=== PATIENT | female | born 1985 | race Asian ===

== ENCOUNTER → 2016-06-18 | Outpatient (CLI) | payer OTHER ==
[~2016-06-18] MED LIST: MTR600X PO; OXYC-57 PO; PRENTAB26 PO
[2016-06-18 11:19] LABS: GTGD 50 Grams
[2016-06-18 12:24] LABS: URINE APPEARANCE CLEAR (CLEAR); URINE BILIRUBIN NEG (NEG); URINE COLOR YELLOW; URINE NITRITE NEG (NEG); URINE PH 7.5 (4.5-7.5); URINE SPECIFIC GRAVITY 1.007 (1.000-1.030); UROBILINOGEN NEG (NEG)
[2016-06-18 12:26] LABS: MANUAL MICROSCOPIC REQUIRED? NO; REVIEW REQ? NO
== END | disposition home or self-care (01) ==
LOC: C.LAB1850 09:50
PROVIDERS: ATTEND Obstetrics & Gynecology
DX: Z34.83 Encounter for supervision of other normal pregnancy, third trimester (principal)

== ENCOUNTER → 2016-08-19 | Outpatient (CLI) | payer OTHER | END | disposition home or self-care (01) | LOC: C.LABSPEC 17:51 | PROVIDERS: ATTEND Obstetrics & Gynecology | DX: Z34.83 Encounter for supervision of other normal pregnancy, third trimester (principal) ==

== ENCOUNTER 2016-09-09 05:30 | Inpatient (IN) | payer OTHER ==
[2016-09-08 14:54] VITALS: BMI 28.0
--- NOTE | 2016-09-08 15:19 | PAT Medication Instructions ---
Service Date Sep 08, 2016. Current Home Medication List Multivit/Min/Iron/Fol Ac/Pren ( Vitamin), 1 TAB PO HS Medication Instructions For Your Scheduled Surgery - Take the following medications as scheduled the night before surgery: Multivit/Min/Iron/Fol Ac/Pren ( Vitamin), 1 TAB PO HS If you have any questions please call us at [phone] (Nory Simpson PA-C) or [phone] or [phone]
[2016-09-08 16:35] LABS: BASO % 0.1 %; BASO ABS # 0.01 K/uL (0-0.2); COMPLETE YES; EOS % 1.6 %; HEMATOCRIT 38.1 % (37-47); LYMPH % 16.8 %; LYMPH ABS # 1.63 K/uL (1.2-3.4); MEAN CELL VOLUME 94.5 fL (80-100); MEAN CORPUSCULAR HGB CONC 33.9 g/dl (32-36); MEAN PLATELET VOLUME 10.2 fL (7.4-10.4); MONO % 8.2 %; NEUT % 72.3 %; PLATELET COUNT 228 K/uL (130-400); RED BLOOD COUNT 4.03 M/uL (4.2-5.4)
--- NOTE | 2016-09-08 21:05 | HISTORY & PHYSICAL EXAMINATION ---
DATE OF ADMISSION: 09/09/2016 PREOPERATIVE DIAGNOSES: 1. Intrauterine at 39 and 5/7 weeks. 2. History of previous section. HISTORY OF PRESENT ILLNESS: Lubna who goes by Fior is a 31-year-old female, 2, para 1-0-0-1 with an intrauterine at 39 and 5/7 weeks dated by last menstrual period consistent with a first trimester ultrasound, who presents to labor and delivery for repeat section. Her first delivery was a delivery via [facility] for an 8-pound 8-ounce male at 40 and 2/7 weeks. She had a primary low transverse section after progressing to complete-complete and 0 to +1 station. The baby became tachycardic. She developed chorioamnionitis and thick meconium and had failure to descend. This has been uncomplicated for the patient. She notes positive movement. She had a nonstress test yesterday which was reactive. No significant contractions, leaking or bleeding. PAST OBSTETRIC AND GYNECOLOGIC HISTORY: As noted above. She notes no abnormal Pap smears or sexually transmitted disease. ALLERGIES: None. MEDICATIONS: vitamin. PAST MEDICAL HISTORY: The patient is healthy. Denies thyroid disease, asthma, heart disease, heart murmur, diabetes, kidney or liver problems. PAST SURGICAL HISTORY: Includes the removal of an endometrial polyp with D\T\C in 2013, , and wisdom teeth removal. SOCIAL HISTORY: The patient denies tobacco, alcohol or drug use. She lives with her child and . FAMILY HISTORY: There is no significant family history. PHYSICAL EXAMINATION: GENERAL: This is a well-developed, well-nourished female in no acute distress. VITAL SIGNS: Blood pressure 102/64, weight 188.4 pounds. NECK: Supple without thyromegaly or lymphadenopathy. CHEST: Clear to auscultation bilaterally. CARDIOVASCULAR: Regular rate and rhythm without murmurs, gallops or rubs. ABDOMEN: Soft, gravid and nontender. EXTREMITIES: Show trace edema but are otherwise negative. PELVIC: Deferred. LABORATORY DATA: Blood type A positive, antibody negative, Pap normal, rubella immune, RPR nonreactive, HIV negative, hepatitis B negative, chlamydia and gonorrhea cultures negative, GTT x2 negative, quad screen negative, normal anatomy ultrasound, GBS negative. ASSESSMENT: Fior is a 31-year-old 2, para 1 at 39 and 4/7 weeks who presents for repeat section. The risks of the procedure were discussed with the patient including the risks of anesthesia, bleeding requiring transfusion, infection, poor wound healing, damage to surrounding structures including bowel, bladder, vessels, nerves and ureters with need for further surgery, hospitalization or intervention. We discussed the alternative of trial of labor. We discussed the risks of any surgery including heart attack, blood clot, stroke or . The patient consents to the procedure and it is planned for 09/09.
[~2016-09-09] VITALS: Ht 172.7 cm; Wt 82.0 kg
[2016-09-09] VITALS (14 sets, daily range): BP systolic 95–105; BP diastolic 56–64; PULSE 69–83; TEMP 36.5–36.8; O2SAT 96–98; Ht 172.7 cm; Wt 82.0 kg
[~2016-09-09 05:30] MED LIST changes: -MTR600X PO; -OXYC-57 PO
[2016-09-09] MEDS ORDERED: CITRIC ACID/SODIUM CITRATE 15 ML UDC ONE (06:06)
[2016-09-09] MEDS ORDERED: CEFAZOLIN IV 2,000 MG in DEXTROSE 5% 50ML IV STA (06:13)
[2016-09-09] MEDS ORDERED: LACTATED RINGER'S 1000ML 1,000 ML IV ONE (06:30)
[2016-09-09 06:43] LABS: MEAN CELL VOLUME 94.1 fL (80-100); MEAN CORPUSCULAR HEMOGLOBIN 31.8 pg (25-34); MEAN PLATELET VOLUME 9.8 fL (7.4-10.4); PLATELET COUNT 202 K/uL (130-400); RED BLOOD COUNT 3.93 M/uL (4.2-5.4)
[2016-09-09 06:45] LABS: MEAN CORPUSCULAR HGB CONC 33.8 g/dl (32-36)
[2016-09-09] MEDS ORDERED: PHENYLEPHRINE HCL INJ 10 MG/ML VIAL ONE (06:51)
[2016-09-09] MEDS ORDERED: OXYTOCIN INJ 10 UNITS/ML VIAL ONE (06:51)
[2016-09-09] MEDS ORDERED: MoRPHine SULFATE PF 1 MG/ML 10 ML AMP/VIAL ONE (06:53)
--- NOTE | 2016-09-09 07:09 | History & Physical Bridge Note ---
H&P Re-Evaluation Bridge Note: I have examined the patient, reviewed the History & Physical and in the interval since the performance of the History & Physical I have noted the following changes of clinical significance: No changes noted
[2016-09-09] MEDS ORDERED: ONDANSETRON INJ 2 MG/ML 2 ML VIAL ONE (07:51)
[2016-09-09] MEDS ORDERED: EpHEDrine SULFATE INJ 50 MG/ML AMP ONE (07:52)
[2016-09-09] MEDS ORDERED: SENNA 8.6 MG TAB PO PRN (08:45)
[2016-09-09] MEDS ORDERED: BENZOCAINE 20% AER SPR 82.5 GM CAN EXT PRN (08:45)
[2016-09-09] MEDS ORDERED: SUPERCREAM 0.870 % 15GM JAR EXT PRN (08:45)
[2016-09-09] MEDS ORDERED: MAGNESIUM HYDROXIDE SUSP 30 ML UDC PO PRN (08:45)
[2016-09-09] MEDS ORDERED: HYDROCORTISONE ACETATE 25 MG SUPP PR PRN (08:45)
[2016-09-09] MEDS ORDERED: DIPHTHERIA/TETANUS/PERTUSSIS 0.5 ML SYR/VIAL IM. ONE (08:45)
[2016-09-09] MEDS ORDERED: LANOLIN OINT EXT PRN ×2 (08:45)
--- NOTE | 2016-09-09 08:52 | [facility] Post Operative Brief Note ---
Immediate Operative Summary Operative Date Sep 09, 2016. (Rodri Giron MD) 09/09/16 (Ashanti Vázquez M.D.) Pre-Operative Diagnosis Repeat low transverse Caesarean Section (Rodri Giron MD) IUP AT 39 WEEKS PREVIOUS C/S (Ashanti Vázquez M.D.) Post-Operative Diagnosis Repeat low transverse Caesarean Section (Rodri Giron MD) SAME RIGHT OVARIAN CYSTIC MASS (Ashanti Vázquez M.D.) Procedure(s) Performed Repeat low transverse Caesarean Section at term for a living female child at 0756 (Rodri Giron MD) REPEAT [facility] RIGHT SALPINGOOPHRECTOMY (Ashanti Vázquez M.D.) Surgeon Dr. Vázquez (Rodri Giron MD) LORNE (sAhanti Vázquez M.D.) Transfer Professor Surgeon(s) Dr. Giron (Rodri Giron MD) DR. GIRON (Ashanti Vázquez M.D.) Estimated Blood Loss 700 ml (Rodri Giron MD) 700CC (Ashanti Vázquez M.D.) Findings Delivered a viable female infant, APGARS 8,9. Weight 8 lbs 14oz. Normal uterus , fallopian tubes and ovaries bilaterally. Adenoma was found on the right ovary. After obtaining verbal consent from the patient and her , it was removed and send for pathology. (Rodri Giron MD) VIABLE FEMALE IN CEPHALIC PRESENTATION, APGARS 8/9, WEIGHT 8#14OZ NL UTERUS, NL LEFT TUBE AND OVARY. RIGHT TUBE ENLARGED BY A CYSTIC MASS, 5CM PALPATES WITH SOME ? NODULARITY. (Ashanti Vázquez M.D.) Fluids (cc crystalloids) 1000CC (Ashanti Vázquez M.D.) Specimens placenta-hold cord blood arterial and venous cord gases right fallopian tube and ovary (Rodri Giron MD) PLACENTA RIGHT TUBE AND OVARY (Ashanti Vázquez M.D.) Drains Trejo to gravity, total loss 150ml (Rodri Giron MD) TREJO (Ashanti Vázquez M.D.) Anesthesia Spinal (Rodri Giron MD) SPINAL (Ashanti Vázquez M.D.) Complication(s) None (Rodri Giron MD) None (Ashanti Vázquez M.D.) Disposition L&D (Rodri Giron MD) L&D (Ashanti Vázquez M.D.)
[2016-09-09] MEDS ORDERED: NALOXONE HCL INJ 1 MG in SODIUM CHLORIDE 0.9% 1000ML 1,000 ML IV PRN (08:59)
[2016-09-09] MEDS ORDERED: NALOXONE HCL INJ 0.08 MG in SYRINGE 1.8 ML IV PRN (08:59)
[2016-09-09] MEDS ORDERED: SODIUM CHLORIDE 0.9% 1000ML 1,000 ML IV PRN (08:59)
[2016-09-09] MEDS ORDERED: LACTATED RINGER'S 1000ML 500 ML IV PRN (08:59)
[2016-09-09] MEDS ORDERED: DiphenhydrAMINE HCL 50 MG/ML VIAL IV PRN (09:00)
[2016-09-09] MEDS ORDERED: OXYTOCIN INJ 20 UNITS in LACTATED RINGER'S 1000ML 1,000 ML IV SCH (09:00)
[2016-09-09] MEDS ORDERED: EpHEDrine SULFATE INJ 50 MG/ML AMP IV PRN (09:00)
[2016-09-09] MEDS ORDERED: MEPERIDINE HCL 25 MG/ML CARP IV PRN (09:00)
[2016-09-09] MEDS ORDERED: NALOXONE HCL 0.4 MG/1 ML VIAL/CARP IV PRN (09:00)
[2016-09-09] MEDS ORDERED: MoRPHine SULFATE 2 MG/ML CARP IV PRN (09:00)
[2016-09-09] MEDS ORDERED: MoRPHine SULFATE PF 1 MG/ML 10 ML AMP/VIAL IT PRN (09:00)
[2016-09-09] MEDS ORDERED: NO NARCOTICS OR SEDATIVES SCH (09:00)
[2016-09-09] MEDS ORDERED: KETOROLAC TROMETHAMINE 30 MG/ML VIAL IV. PRN (09:00)
[2016-09-09] MEDS ORDERED: NALBUPHINE HCL INJ 10 MG/ML AMP IV PRN (09:00)
[2016-09-09] MEDS ORDERED: ONDANSETRON INJ 2 MG/ML 2 ML VIAL IV PRN (09:00)
--- NOTE | 2016-09-09 09:01 | Anesthesiology Progress Note ---
Anesthesia Post Op Note Date & Time Sep 09, 2016 at 09:00 Notes Mental Status: alert / awake / arousable, participated in evaluation Pt Amnestic to Procedure: Yes Nausea / Vomiting: adequately controlled Pain: adequately controlled Airway Patency, RR, SpO2: stable & adequate BP & HR: stable & adequate Hydration State: stable & adequate Neuraxial Anesthesia: was administered, sensory block is resolving Anesthetic Complications: no major complications apparent
--- NOTE | 2016-09-09 09:55 | OPERATIVE REPORT ---
DATE OF OPERATION: 09/09/2016 PREOPERATIVE DIAGNOSES: 1. Intrauterine at 39+ weeks. 2. History of previous section, desires repeat. POSTOPERATIVE DIAGNOSES: 1. Intrauterine at 39+ weeks. 2. History of previous section, desires repeat. 3. Complex appearing cyst of the right ovary. PROCEDURES: 1. Repeat lower transverse section. 2. Right salpingo-oophorectomy. SURGEON: Dr. Vázquez. HAND CLERICAL VERIFIER: Dr. Sorto, PGY1. ANESTHESIA: Spinal. ESTIMATED BLOOD LOSS: 700 mL. FLUIDS: 1000 mL in the OR. URINE OUTPUT: 150 mL of clear yellow urine drained from the bladder at the end of the procedure. INDICATIONS: The patient is a 2, para 1-0-0-1 with history of previous section for failure to descend for an 8-1/2 pound baby. She desires repeat section. FINDINGS: Viable female , Apgars 8 and 9, weight 8 pounds and 14 ounces. Uterus, tubes, and left ovary appeared normal. The right ovary; however, contained a cystic mass that completely replaced the ovarian stromal tissue. This was smooth on the outside, appeared cystic with fluid movement on the inside but on palpating the cyst there felt that there could be some nodularity on the inner wall of the cyst. COMPLICATIONS: None. DRAINS: Barrios. DISPOSITION: To recovery room in stable condition. PROCEDURE: The patient was taken to the operating room where she was identified verbally and by bracelet. She was seated on the operating table where spinal anesthetic was placed. She was then placed in the dorsal supine position with a leftward tilt. A Barrios catheter was placed and she was prepped and draped in normal sterile fashion. Timeout was held identifying correct patient, procedure and positioning. A Pfannenstiel skin incision was made over the previous incision and taken down to the underlying layer of fascia with the knife. Bleeding was attended to with Bovie electrocautery. The fascia was incised in the midline with the knife and taken out laterally with scissors. The superior edge of the fascial incision was grasped, elevated and the underlying layer of rectus muscle was taken off bluntly and with scissors. In a similar fashion, the inferior edge of the fascial incision was grasped, elevated and the underlying layer of rectus muscle taken off bluntly and with scissors. The muscles were with a snap. The peritoneum was grasped bilaterally with these naps and the peritoneum was entered sharply with scissors. The chain saw operator's fingers were placed into the peritoneal cavity and no adhesions were noted. The peritoneum was taken superiorly and inferior sharply with scissors with good visualization of the bladder. The incision was stretched. The bladder blade was placed. The vesicouterine peritoneum was identified and entered with scissors and taken out laterally with scissors. The bladder flap was created digitally. The bladder blade was replaced. The hysterotomy incision was created with a knife, it was entered with a snap. Clear fluid was noted upon amniotomy. The incision was stretched with the chain saw operator's fingers. The chain saw operator's hand was placed into the uterus and I had trouble delivering the head through the incision so vacuum was called for. Vacuum was placed on the head and with no pop offs and fundal pressure, the head was delivered through the incision. The nose and mouth were bulb suctioned. There was no nuchal cord. The rest of the infant was then delivered without difficulty. There was immediate cry on the field. Nose and mouth were again bulb suctioned. The cord was clamped and cut and the was taken off to the waiting recreational director for drying and attention. Cord blood and segment were obtained for gases. The uterus was exteriorized and then the placenta was manually extracted and the uterus was cleared of all clot and debris with moistened laparotomy sponges. The hysterotomy incision was identified and repaired with 2 layers of 0 Vicryl suture, the first in a running locked layer, the second in an imbricating layer. A sponge was placed over this and the posterior cul-de-sac was irrigated and cleared of all clot and debris. On inspection of the ovaries a right ovarian cystic mass was discovered as was described above. The patient was awake, I was able to pull down the drape and so could look at her through the clear view of the drape. The patient's was called for. I also called for Dr. Miles who scrubbed into the surgery and agreed with my assessment that the best course was probably to remove this adnexa. I explained in detail to the patient about what was involved in removing the adnexa and that she would still be able to conceive, she would not be menopausal needing hormone therapy and her left ovary which was completely normal would function normally for her. I explained that the other option was to not do anything to replace the ovary and then follow it with ultrasound, however, given the appearance of this cyst and the nodularity I thought it was best that we remove it. The patient and were agreeable. The patient did give me verbal consent and this was identified and confirmed with everyone in the room. Then the 2 clamps were placed over the tubo-ovarian and the IP. The specimen was removed, it was tied with 1-0 Vicryl and then stick tied with another 0 Vicryl. Hemostasis was noted to be excellent from the area. The incision was again inspected and found to be hemostatic. The uterus was reanteriorized. The right adnexal site was examined and found to be hemostatic. The incision was again inspected, some oozing was attended to with 2 interrupted [id number] sutures of 0 Vicryl until hemostasis was assured. The muscles were then reapproximated in midline with 0 Vicryl sutures. The fascia was reapproximated with 0 Vicryl meeting in the midline. The subcuticular tissue was copiously irrigated with warm normal saline. The patient had some irregular scar that I then excised from the skin with the knife. The skin edges on each side were undermined with Bovie electrocautery. Bleeding was attended to with Bovie electrocautery and skin was then closed with subcuticular stitch of 4-0 Vicryl. All sponge, lap and needle counts were correct x2. The patient tolerated the procedure well and was taken to the recovery room in stable condition. I attest to the content of the Intraoperative Record and any orders documented therein. Any exceptio ns are noted below.
[2016-09-09] MEDS ORDERED: NURSING VERBAL MED ORDER ONE (18:30)
[2016-09-09] MEDS ORDERED: LACTATED RINGER'S 1000ML 1,000 ML IV SCH (18:45)
[2016-09-09] MEDS: DOCUSATE SODIUM 100 MG CAP PO SCH (20:13)
[2016-09-09] MEDS ORDERED: PRENATAL VITAMIN TAB PO SCH (22:00)
[2016-09-10] VITALS: BP 100/61; PULSE 64; TEMP 36.7; O2SAT 96
[2016-09-10] MEDS ORDERED: KETOROLAC TROMETHAMINE 30 MG/ML VIAL IV. PRN (01:30)
[2016-09-10] MEDS ORDERED: OXYCODONE/ACETAMINOPHEN 5-325 TAB PO PRN (01:30)
[2016-09-10] MEDS ORDERED: ONDANSETRON INJ 2 MG/ML 2 ML VIAL IV PRN (01:30)
[2016-09-10] MEDS ORDERED: DiphenhydrAMINE HCL 50 MG/ML VIAL IV PRN (01:30)
[2016-09-10] MEDS ORDERED: DC INTRASPINAL MORPHINE SCH (01:30)
[2016-09-10 04:30] VITALS: BP 95/59; PULSE 58; TEMP 36.8; O2SAT 95
--- NOTE | 2016-09-10 06:37 | Progress Note ---
Subjective Sep 10, 2016. Subjective conversation w/ patient, physical exam, lab review Ambulation: limited ambulation (yu was removed this morning ) Passing Gas: Yes Diet Tolerance: Regular Diet Lochia: Moderate Feeding Type: Breast Feeding Pain: improves with meds Comment: Patient was seen at the bedside. No acute event overnight. Review of Systems Constitutional: No fever, No weight loss Respiratory: No cough, No shortness of breath Cardiac: No chest pain Breast: No breast lump Abdomen: No nausea, No pain, No vomiting Female : No dysuria Denies headache Objective Vital Signs Date Time Temp Pulse Resp B/P Pulse Ox O2 Delivery O2 Flow Rate FiO2 09/10/16 04:30 36.8 58 16 95/59 95 Room Air 09/10/16 00:00 36.7 64 16 100/61 96 Room Air 09/10/16 00:00 96 Room Air 09/09/16 23:30 16 96 09/09/16 22:30 16 97 09/09/16 21:30 18 96 09/09/16 20:00 36.6 71 18 97/61 97 Room Air 09/09/16 19:30 16 97 09/09/16 18:30 20 96 09/09/16 17:30 16 96 09/09/16 16:30 18 96 09/09/16 15:40 96 Room Air 09/09/16 15:40 36.5 69 18 95/56 96 Room Air 09/09/16 15:35 18 96 09/09/16 14:30 16 98 09/09/16 14:00 16 97 09/09/16 13:08 16 98 09/09/16 11:45 98 Room Air 09/09/16 11:45 16 98 09/09/16 11:45 36.8 83 16 105/64 98 Room Air 09/09/16 11:45 98 Room Air Physical Exam General Appearance: WELL-APPEARING, WD/WN, NO APPARENT DISTRESS Respiratory/Chest: chest non-tender, lungs clear, normal breath sounds, no respiratory distress Cardiovascular: regular rate, rhythm Abdomen: normal bowel sounds, non tender, soft Fundus: Firm, Relation to Umbilicus (about 2-3cm below) Incision Description: Clean, Dry & Intact Extremities: non-tender, no pedal edema, no calf tenderness Laboratory Results Last 24 Hours Test 09/10/16 06:10 Medications Current Inpatient Medications Medications (Trade) Dose Ordered Sig/Le Route Start Time Stop Time Status Last Admin Dose Admin Prenat Multivit/ [place]/Iron/Folic Ac ( Vitamin Tab) 1 tab HS PO 09/09/16 22:00 10/09/16 21:59 Ketorolac Tromethamine (Toradol Inj) 30 mg Q6H PRN IV. 09/10/16 01:30 09/15/16 01:29 Oxycodone/ Acetaminophen (Percocet 5-325mg Tab) 1 tab Q4H PRN PO 09/10/16 01:30 09/24/16 01:29 Oxycodone/ Acetaminophen (Percocet 5-325mg Tab) 2 tab Q4H PRN PO 09/10/16 01:30 09/24/16 01:29 Ibuprofen (Motrin Tab) 600 mg Q4H PRN PO 09/09/16 08:45 10/09/16 08:44 Ondansetron HCl (Zofran Inj) 4 mg Q4H PRN IV 09/10/16 01:30 10/10/16 01:29 Bisacodyl (Dulcolax Tab) 5 mg HS ONCE PO 09/10/16 22:00 09/10/16 22:01 Docusate Sodium (coLACE CAP) 100 mg BID PO 09/09/16 20:00 10/09/16 19:59 09/09/16 20:13 100 MG Magnesium Hydroxide (Milk Of Magnesia Susp) 30 ml HS PRN PO 09/09/16 08:45 10/09/16 08:44 Cocaine HCl (Supercream 0.870% Cr) BID PRN EXT 09/09/16 08:45 09/23/16 08:44 Lanolin (Lanolin Oint) PRN PRN EXT 09/09/16 08:45 10/09/16 08:44 Hydrocortisone Acetate (Anusol Hc Supp) 25 mg BID PRN IL 09/09/16 08:45 10/09/16 08:44 Benzocaine (Dermoplast Aero Spr) 1 appln PRN PRN EXT 09/09/16 08:45 10/09/16 08:44 Diphenhydramine HCl (Benadryl Cap) 25 mg QID PRN PO 09/10/16 01:30 10/10/16 01:29 Diphenhydramine HCl (Benadryl Inj) 25 mg QID PRN IV 09/10/16 01:30 10/10/16 01:29 Senna (Senokot Tab) 17.2 mg HS PRN PO 09/09/16 08:45 10/09/16 08:44 Morphine Sulfate (Duramorph Pf Inj) 0.2 mg TODAY PRN IT 09/09/16 09:00 Assessment and Plan Post-Op Day#: 1 Continue Routine Care: A/P: This is a 31 y/o female, , s/p . She is ambulating and clinically stable. Plan: - Vitals signs are reviewed and WNL (Tmax 36.8 ) - Last Hgb is 12.5 - Blood type A+, GBS neg, Rubella Immune - Routine care - Encourage ambulation, monitor and control pain with medication as needed , continue with regular diet as tolerated and monitor lochia - Stool softeners and sitz bath recommended - Encourage breast feeding and educate about breast feeding Resident Physician Supervision Note: I interviewed and examined the patient. Discussed with Dr. Sorto and agree with findings and plan as documented in the note. Any exceptions or clarifications are listed here: Doing well. Incision c/d/i. Routine care. Documented By: Ashanti Vázquez
[2016-09-10 06:38] LABS: BASO % 0.2 %; BASO ABS # 0.03 K/uL (0-0.2); COMPLETE YES; EOS % 0.9 %; IG% 0.6 %; LYMPH % 8.9 %; LYMPH ABS # 1.55 K/uL (1.2-3.4); MEAN CELL VOLUME 95.4 fL (80-100); MEAN CORPUSCULAR HEMOGLOBIN 31.7 pg (25-34); MEAN CORPUSCULAR HGB CONC 33.2 g/dl (32-36); MONO % 6.8 %; NEUT % 82.6 %; PLATELET COUNT 185 K/uL (130-400); RED BLOOD COUNT 3.88 M/uL (4.2-5.4); WHITE BLOOD COUNT 17.42 K/uL (4.8-10.8)
[2016-09-10 07:40] VITALS: BP 101/67; PULSE 70; TEMP 36.8; O2SAT 95
[2016-09-10] MEDS: DOCUSATE SODIUM 100 MG CAP PO SCH ×2 (07:56→19:45)
[2016-09-10] MEDS: IBUPROFEN 600 MG TAB PO PRN ×4 (07:56→23:55)
[2016-09-10] MEDS: OXYCODONE/ACETAMINOPHEN 5-325 TAB PO PRN ×3 (07:57→23:56)
[2016-09-10] MEDS ORDERED: PRENATAL VITAMIN TAB PO SCH (08:00)
[2016-09-10 16:00] VITALS: BP 109/71; PULSE 73; TEMP 36.5
[2016-09-10 19:43] VITALS: BP 96/58; PULSE 59; TEMP 36.4; O2SAT 96
[2016-09-10] MEDS ORDERED: BISACODYL 5 MG TABEC PO ONE (22:00)
[2016-09-10 23:55] VITALS: BP 103/66; PULSE 61; TEMP 36.3; O2SAT 97
[2016-09-11 07:19] LABS: HEMATOCRIT 36.8 % (37-47)
[2016-09-11 07:30] VITALS: BP 105/71; PULSE 56; TEMP 36.6
--- NOTE | 2016-09-11 07:31 | Discharge Instructions ---
Discharge Instructions Date of Service Sep 11, 2016. Admission Reason for Admission: Previous Section Discharge Discharge Diagnosis / Problem: s/p Discharge Goals Goal(s): Routine recovery after Medications Continue Dispensed Medications: supercream, dermaplast, tucks, lansinoh Activity Recommendations Activity Limitations: as noted below . Instructions / Follow-Up Instructions / Follow-Up ACTIVITY RECOMMENDATIONS: * Gradual return to full activity over the next 2-3 weeks. * No lifting - nothing heavier than baby over the next 2-3 weeks. * Do not engage in vigorous exercise, sexual activity or sports until cleared by your physician. * Do not drive or operate any motorized equipment until cleared by your physician. * You may shower/bathe daily. MEDICATIONS: For discomfort or pain, you may use Acetaminophen (Tylenol), Ibuprofen (Advil), or Naproxen (Aleve) following the package directions. For constipation you may use Colace following the package directions. BREAST CARE: If you are not breast feeding: * Wear a supportive bra 24 hours a day for one to two weeks. * Avoid stimulating your breasts and nipples as much as possible during the first few weeks after delivery. * When taking a shower, have the warm water hit your back, not breasts. * When your breasts feel full, apply ice packs. Usually three to four times a day helps ease the discomfort. * Take a mild pain medication (Tylenol / Motrin) when you are uncomfortable. If breast feeding: * Use breast milk to lubricate nipples. Lansinoh cream may be used for sore nipples. You do not need to remove cream prior to breast feeding. If using a different brand of cream, check the label for directions regarding removal of cream prior to nursing. * Wear a supportive bra. * If having problems with breasts or breast feeding, call a method consultant or your health care provider. SPECIAL CARE INSTRUCTIONS: When you are discharged from the hospital, it is important for you to follow the instructions listed below: * During the first week at home, you should be able to care for yourself and your baby. In addition, the usual light household activities are encouraged. * Limit your activities to the way you feel. Do not try to clean the house or move furniture. Be sensible. * If you actively engage in sports and have done so up until the time of your delivery, you may resume these activities as soon as you feel able. This may take up to one month or even longer. Use good judgment. * Continue to take your vitamins for at least six weeks after the of your baby. * Your diet need not be limited unless you were on a special diet before your delivery. Breast-feeding mothers need around 2500 calories per day and at least 64-80 ounces of fluid per day (8 to 10 glasses). * You should eat foods from the four major food groups. Crash diets or fad diets are to be avoided. Eating lean meats, fresh fruits and vegetables, low-fat dairy products, high fiber foods and a regular exercise program, will help you get back to your pre- weight without putting your health at risk. * Constipation is sometimes a problem after delivery. Take a mild laxative as needed. If breast feeding, Milk of Magnesia is acceptable to use. You may use a suppository or Fleets enema. * A daily shower or tub bath is suggested. Wash incision daily with warm soapy water and pat dry. It doesn't need to be covered unless drainage is present. * A bloody vaginal discharge will usually continue until around four weeks . A small amount of bleeding may continue for as long as six weeks. Vaginal discharge changes from the bright red bleeding after delivery to pink then brownish and finally yellowish-pink before becoming white and disappearing. * Bleeding may increase with activity. Your first period may come in 4-8 weeks. If you are breast feeding, your period may be delayed even longer. * [place] (sex) can begin whenever both you and your partner feel comfortable and do not have any form of genital infection. It is recommended that you wait at least six weeks for internal and external healing to occur. If you have questions, please talk to your health care practitioner. A condom should be used to prevent infection and . * Foreplay, gentle intercourse and lubrication is very important the first several times to prevent pain. A water-based lubricant such as K-Y jelly or Astroglide may be used. * If you have RH negative blood and your baby is RH positive, you will receive RHOGAM by injection prior to discharge. The nurse will give you a card to keep with you that has the date and place that you received RHOGAM after delivery. * During your care, you had a Rubella screen done to check for the presence of rubella antibodies in your blood. If your test was negative, you will receive a Rubella vaccine prior to discharge. This vaccine may cause a fever, soreness at the injection site and flu-like symptoms. If these symptoms persist, notify your health care practitioner. is not advised for one month after a Rubella vaccine. * Verbalizes understanding of car seat law as reviewed with patient nursing. * Car Seat hand-out given and reviewed with patient by nursing. * Shaken baby information reviewed with patient by nursing. Call you doctor if: * Heavy bleeding (saturating several pads an hour) or passing clots the size of your fist. * A fever >101 degrees F (38.3 degrees C) on two occasions four hours apart and /or chills. * Unusual pain in the pelvic or vaginal areas. * Call the doctor for any increased redness, drainage or swelling around the incision and any pain unrelieved by prescribed pain medication. * "Baby Blues" lasting longer than two weeks. If you have any questions or concerns, call your health care practitioner at . FOLLOW UP VISIT: * Please call the office at to schedule a 6 week examination. It is important you keep this appointment. It is important for you to make arrangements for either yearly or twice yearly check-ups thereafter. Current Hospital Diet Patient's current hospital diet: Regular OB Diet Discharge Diet Recommended Diet: Regular Diet Procedures Procedures Performed: REPEAT LTCS RIGHT SALPINGOOPHRECTOMY Pending Studies Studies pending at discharge: no Medical Emergencies . Who to Call and When: Medical Emergencies: If at any time you feel your situation is an emergency, please call 911 immediately. . Non-Emergent Contact Non-Emergency issues call your: Veneer Drier Tailer Call Non-Emergent contact if: you have a fever, temperature is above 101 . . "Provider Documentation" section prepared by Rodri Sorto. . VTE Core Measure Inpt VTE Proph given/why not?: Treatment not indicated
--- NOTE | 2016-09-11 07:34 | Progress Note ---
Subjective Sep 11, 2016. Subjective conversation w/ patient, physical exam, lab review Ambulation: ambulating normally Voiding: no voiding problems Passing Gas: Yes Diet Tolerance: Regular Diet Lochia: Large Feeding Type: Breast Feeding Pain: improving with meds Comment: Patient was seen at the bedside. No acute event overnight. Review of Systems Constitutional: No fever Respiratory: No shortness of breath Cardiac: No chest pain Breast: No breast lump Abdomen: No nausea, No pain, No vomiting Female : No dysuria, No urinary frequency Denies headache Objective Vital Signs Date Time Temp Pulse Resp B/P Pulse Ox O2 Delivery O2 Flow Rate FiO2 09/10/16 23:55 Room Air 09/10/16 23:55 36.3 61 16 103/66 97 Room Air 09/10/16 19:43 Room Air 09/10/16 19:43 36.4 59 16 96/58 96 Room Air 09/10/16 16:00 36.5 73 16 109/71 Room Air 09/10/16 16:00 Room Air 09/10/16 07:40 36.8 70 16 101/67 95 Room Air 09/10/16 07:40 Room Air Physical Exam General Appearance: WELL-APPEARING, WD/WN, NO APPARENT DISTRESS Respiratory/Chest: chest non-tender, lungs clear, normal breath sounds Cardiovascular: regular rate, rhythm Abdomen: normal bowel sounds, non tender, soft Fundus: Firm, Relation to Umbilicus (2cm below) Incision Description: Clean, Dry & Intact Extremities: non-tender, no pedal edema, no calf tenderness Laboratory Results Last 24 Hours Test 09/11/16 06:07 Hemoglobin 12.3 g/dL Hematocrit 36.8 % Medications Current Inpatient Medications Medications (Trade) Dose Ordered Sig/Le Route Start Time Stop Time Status Last Admin Dose Admin Prenat Multivit/ Adelino/Iron/Folic Ac ( Vitamin Tab) 1 tab HS PO 09/09/16 22:00 10/09/16 21:59 09/10/16 21:29 1 TAB Ketorolac Tromethamine (Toradol Inj) 30 mg Q6H PRN IV. 09/10/16 01:30 09/15/16 01:29 Oxycodone/ Acetaminophen (Percocet 5-325mg Tab) 1 tab Q4H PRN PO 09/10/16 01:30 09/24/16 01:29 09/10/16 23:56 1 TAB Oxycodone/ Acetaminophen (Percocet 5-325mg Tab) 2 tab Q4H PRN PO 09/10/16 01:30 09/24/16 01:29 09/10/16 17:22 2 TAB Ibuprofen (Motrin Tab) 600 mg Q4H PRN PO 09/09/16 08:45 10/09/16 08:44 09/10/16 23:55 600 MG Ondansetron HCl (Zofran Inj) 4 mg Q4H PRN IV 09/10/16 01:30 10/10/16 01:29 Docusate Sodium (coLACE CAP) 100 mg BID PO 09/09/16 20:00 10/09/16 19:59 09/10/16 19:45 100 MG Magnesium Hydroxide (Milk Of Magnesia Susp) 30 ml HS PRN PO 09/09/16 08:45 10/09/16 08:44 Cocaine HCl (Supercream 0.870% Cr) BID PRN EXT 09/09/16 08:45 09/23/16 08:44 Lanolin (Lanolin Oint) PRN PRN EXT 09/09/16 08:45 10/09/16 08:44 Hydrocortisone Acetate (Anusol Hc Supp) 25 mg BID PRN [place] 09/09/16 08:45 10/09/16 08:44 Benzocaine (Dermoplast Aero Spr) 1 appln PRN PRN EXT 09/09/16 08:45 10/09/16 08:44 Diphenhydramine HCl (Benadryl Cap) 25 mg QID PRN PO 09/10/16 01:30 10/10/16 01:29 Diphenhydramine HCl (Benadryl Inj) 25 mg QID PRN IV 09/10/16 01:30 10/10/16 01:29 Senna (Senokot Tab) 17.2 mg HS PRN PO 09/09/16 08:45 10/09/16 08:44 Morphine Sulfate (Duramorph Pf Inj) 0.2 mg TODAY PRN IT 09/09/16 09:00 Assessment and Plan Post-Op Day#: 2 Continue Routine Care: A/P: This is a 31 y/o female, , s/p . She is ambulating and clinically stable to discharge. - Vital signs are reviewed and WNL (Tmax 36.7 ) - Last Hgb 12.3 - Blood type A+, GBS neg, Rubella Immune - No signs of depression. - Routine care - Discussed resting, feeding, pain control, mastitis, control, follow up in 6 weeks and reasons to call sooner, if necessary. - Continue with pain medication as needed, and continue vitamins. - Encourage breast feeding and educate about breast feeding - Patient understands and keen for home. - Plan to discharge home Resident Physician Supervision Note: I interviewed and examined the patient. Discussed with Dr. Sorto and agree with findings and plan as documented in the note. Any exceptions or clarifications are listed here: [None] Documented By: Binu Montano
[2016-09-11] MEDS ORDERED: MTR600X PO (08:14)
[2016-09-11] MEDS ORDERED: OXYC-57 PO (08:14)
[2016-09-11] MEDS: IBUPROFEN 600 MG TAB PO PRN (08:24)
[2016-09-11] MEDS: DOCUSATE SODIUM 100 MG CAP PO SCH (08:24)
[2016-09-11] MEDS: OXYCODONE/ACETAMINOPHEN 5-325 TAB PO PRN (08:26)
[2016-09-11 13:46] VITALS: BP_DIAS 71; PULSE 56; TEMP 36.6
== END 2016-09-11 14:38 | disposition home or self-care (01) | DRG 766 ==
LOC: C.LD 05:30 → EDSTATUS 07:30 → C.OBG 11:12
PROVIDERS: ADMIT Obstetrics & Gynecology; ATTEND Obstetrics & Gynecology
PROC: 0UT00ZZ Resection of Right Ovary, Open Approach (ICD-10-PCS; principal; 2016-09-09 07:30)
PROC: 10D00Z1 Extraction of Products of Conception, Low, Open Approach (ICD-10-PCS; principal; 2016-09-09 07:30)
DX: O34.211 Maternal care for low transverse scar from previous cesarean delivery (principal); O26.893 Other specified pregnancy related conditions, third trimester; D27.0 Benign neoplasm of right ovary; Z3A.39 39 weeks gestation of pregnancy; Z37.0 Single live birth